=== PATIENT | female | born 1950 | race Caucasian/White ===

== ENCOUNTER 2018-11-04 20:07 | Observation (INO) ==
--- NOTE | 2018-11-04 20:53 | Emergency Department Note ---
Disposition Clinical Impression: Acute renal failure (ARF), Dehydration, Pneumonia, Acute kidney injury Disposition: Admitted As Inpatient Condition: Fair Referrals: Larry Kirkland DO [Primary Care Provider] - Forms: ED Satisfaction Letter Time of Disposition: 22:30 General Adult HPI - General Chief complaint: ED Urogenital-Female Stated complaint: SOB/NO urination all day Time Seen by Provider: 11/04/18 20:09 Source: patient Mode of arrival: ambulatory Limitations: no limitations Nursing Notes Reviewed: Yes Vital Signs Reviewed: Yes - History of Present Illness HPI Narrative: Older than stated 68-year-old female presents to emergency room with generalized myalgias weakness no energy no chest pain chest pressure or shortness of rales cough feels like she is wheezing crackles but also tells me she has not urinated in his last evening she "loss vision he states that she's had tenderness today states her bowels are working. Patient states that she's had no vomiting no diarrhea. She states that she has some chronic kidney disease and sees Dr. Moran for his denies any blurred vision double vision loss vision she s tates that she's had some lightheadedness and dizziness and weakness denies any chest pain chest pressure palpitations denies any recent rashes or lesions denies anything makes it better and worse all systems have been reviewed and are otherwise negative Onset (ago): day(s) (1) Location: other (Generalized) Pain Scale: 0 Improves with: nothing Worsens with: nothing Associated symptoms: Reports: cough, loss of appetite, malaise, nausea/vomiting, shortness of breath, weakness. Denies: confusion, chest pain, diaphoresis, fever/chills, headaches, rash, seizure, syncope Treatments Prior to Arrival: none - Related Data Home Medications Medication Instructions Recorded Confirmed Aspirin 81 mg PO DAILY 07/16/17 11/04/18 Isosorbide MONOnitrate (24 HR) 60 mg PO DAILY 07/16/17 11/04/18 [Imdur] LORazepam [Ativan] 1 mg PO BID 07/16/17 11/04/18 NIFEdipine [Adalat cc] 30 mg PO QPM 07/16/17 11/04/18 NIFEdipine [Adalat cc] 60 mg PO QAM 07/16/17 11/04/18 Levothyroxine Sodium [Levo-T] 50 mcg PO DAILY 08/04/18 11/04/18 Carvedilol 6.25 mg PO BID 11/04/18 11/04/18 Cholecalciferol (Vitamin D3) 1,000 unit PO DAILY 11/04/18 11/04/18 [Vitamin D] Guaifenesin/Dm/Pseudoephedrine 1 each PO QID PRN 11/04/18 11/04/18 [Capmist Dm Tablet] Previous Rx's Medication Instructions Recorded Albuterol Neb [Proventil Neb] 2.5 mg IH [id number] PRN #1 bottle 08/09/18 Albuterol Sulfate [Albuterol 2 puff IH Q4HR PRN #1 bottle 08/09/18 Inhaler] Allergies Allergy/AdvReac Type Severity Reaction Status Date / Time Amoxicillin Allergy Difficulty Verified 08/04/18 02:22 Swallowing azithromycin Allergy See Verified 11/04/18 20:27 Comments doxycycline Allergy Anaphylaxis Verified 08/04/18 02:22 Hydralazine Allergy See Verified 11/04/18 20:27 Comments prednisone Allergy Anaphylaxis Verified 08/04/18 02:22 Sulfa (Sulfonamide Allergy Difficulty Verified 08/04/18 02:22 Antibiotics) Swallowing All systems ED: reviewed and negative except as stated. Review of Systems: As Per HPI Constitutional: Reports: weakness. Denies: fever, chills Eyes: Denies: eye pain, eye discharge ENT ED: Denies: ear pain, throat pain Cardiovascular: Denies: chest pain, palpitations, dyspnea on exertion Respiratory: Reports: dyspnea. Denies: cough, wheezes Gastrointestinal: Reports: nausea. Denies: abdominal pain, vomiting Genitourinary: Reports: other (Retention versus oliguria). Denies: urgency, dysuria, frequency Musculoskeletal: Denies: back pain, neck pain Integumentary: Denies: rash, abrasion, lesions Neurological: Denies: headache, weakness Psychiatric: Denies: anxiety, depression Endocrine: Denies: fatigue Hematological/Lymphatic: Denies: easy bleeding Allergic/Immunologic: Denies: facial swelling Past Medical History - Past Medical History Attestation: Yes The following information was validated with the patient. 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 - Social History Smoking Status: Current every day smoker Smokeless Tobacco Status: No Alcohol use: Reports: none Drug use: Reports: none Physical Exam - General Limitations: no limitations General appearance: alert, in no apparent distress, anxious, other - Head Head exam: atraumatic, normocephalic, normal inspection - Eye Eye exam: Present: normal appearance, PERRL, EOMI - Expanded Eye Exam Slit lamp exam: (Ill but nontoxic) - ENT ENT exam: normal exam, normal oropharynx, mucous membranes dry, TM's normal bilaterally, normal external ear exam - Neck Neck exam: Present: normal inspection, full ROM, trachea midline - Chest Chest inspection: Present: normal inspection, symmetric chest wall rise - Respiratory Respiratory exam: Present: normal lung sounds bilaterally - Cardiovascular Cardiovascular exam: Present: regular rate, normal rhythm, normal heart sounds - Abdominal Exam Abdominal exam: Present: soft, Non-Tender, normal bowel sounds, other (I was unable to palpate the bladder on examination). Absent: mass, pulsatile mass - Extremities Exam Extremities exam: Present: normal inspection, full ROM, normal capillary refill. Absent: tenderness, pedal edema, joint swelling, calf tenderness - Expanded Lower Extremity Exam Neurovascular/Tendon exam: Present: normal capillary refill, normal fine/light touch Gait: observed and normal - Back Exam Back exam: Present: normal inspection, full ROM. Absent: tenderness, muscle spasm - Neurological Exam Neurological exam: Present: alert, oriented X3, CN II-XII intact, normal gait - Psychiatric Psychiatric exam: Present: normal affect, normal mood - Skin Skin exam: Present: warm, dry, intact, other (Slightly sallow ill appearing in color) Course Course Narrative: Patient was immediately seen and evaluated laboratory data his chest x-ray and bladder as a result patient was given an IV established and given 1 L normal saline patient was given a dose of Levaquin and also Rocephin with all results having been obtained I did try to reach Dr. Moran her career and technology education teacher and was unable to make contact with him I did call [facility] but they have no beds available at their facility did call hospitalist here for facility discussed care treatment management he's been advised that he she is on wait list for [facility] the patient patient was then transferred to [facility] as result she has significant renal impairment Vital Signs Temperature 97.3 F L 11/04/18 20:09 Pulse Rate 80 11/04/18 20:09 Respiratory Rate 18 11/04/18 20:09 Blood Pressure 182/76 11/04/18 20:09 O2 Sat by Pulse Oximetry 92 11/04/18 20:09 Temperature 97.3 F L 11/04/18 20:13 Pulse Rate 79 11/04/18 22:02 Respiratory Rate 17 11/04/18 22:02 Blood Pressure 185/78 11/04/18 22:02 O2 Sat by Pulse Oximetry 95 11/04/18 22:02 Oxygen Delivery Oxygen Delivery Nasal Cannula Medical Decision Making - MDM Narrative Medical decision making narrative: Dehydration acute on chronic kidney failure and congestive heart failure pneumonia bronchitis endorgan damage - Medical Records Medical records reviewed: Yes I reviewed the patient's medical records. - Lab Data Lab results reviewed: Yes I reviewed the patient's lab results. Result diagrams: 11/04/18 21:12 11/04/18 21:12 Lab Results 11/04/18 11/04/18 11/04/18 Range/Units 21:12 21:12 21:12 WBC 8.9 (4.3-11.1) K/mcL RBC 3.61 L (3.82-4.97) M/mcL Hgb 11.1 L (11.5-15.4) g/dL Hct 32.1 L (35.3-44.9) % MCV 88.9 (83.0-100.0) fL MCH 30.7 (28.0-33.3) pg MCHC 34.6 (31.6-35.5) g/dL RDW 13.2 (11.5-14.5) % Plt Count 176 (140-400) K/mcL MPV 11.0 (9.4-12.4) fL Immature Gran % 0.3 (0-4) % Seg Neutrophils % 80.2 % Lymphocytes % 12.2 % Monocytes % 6.5 % Eosinophils % 0.4 % Basophils % 0.4 % Neutrophils # 7.1 (1.6-8.9) K/mcL Lymphocytes # 1.1 (0.6-4.6) K/mcL Monocytes # 0.6 (0.0-1.3) K/mcL Eosinophils # 0.0 (0.0-0.6) K/mcL Basophils # 0.0 (0.0-0.2) K/mcL PT (9.4-12.1) Seconds INR APTT 51.1 H (26.0-36.0) Seconds Sodium (136-145) mEq/L Potassium (3.5-5.1) mEq/L Chloride (98-107) mEq/L Carbon Dioxide (23-29) mEq/L BUN (8-23) mg/dL Creatinine (0.60-1.20) mg/dL Est GFR ( Amer) (> 60) Est GFR (Non-Af Amer) (> 60) BUN/Creatinine Ratio (6-26) Glucose (70-105) mg/dL Calculated Osmolality (280-300) Lactic Acid (0.5-2.2) mmol/L Calcium (8.6-10.3) mg/dL Total Bilirubin (0.3-1.0) mg/dL AST (13-39) Units/L ALT (7-52) Units/L Alkaline Phosphatase (34-104) Units/L Troponin I (< 0.04) ng/mL B-Natriuretic Peptide 3972 H (Less than 100) pg/mL Serum Total Protein (6.4-8.9) g/dL Albumin (3.5-5.7) g/dL Globulin (2.4-3.5) g/dL Albumin/Globulin Ratio (1.1-2.2) 11/04/18 11/04/18 11/04/18 Range/Units 21:12 21:12 21:12 WBC (4.3-11.1) K/mcL RBC (3.82-4.97) M/mcL Hgb (11.5-15.4) g/dL Hct (35.3-44.9) % MCV (83.0-100.0) fL MCH (28.0-33.3) pg MCHC (31.6-35.5) g/dL RDW (11.5-14.5) % Plt Count (140-400) K/mcL MPV (9.4-12.4) fL Immature Gran % (0-4) % Seg Neutrophils % % Lymphocytes % % Monocytes % % Eosinophils % % Basophils % % Neutrophils # (1.6-8.9) K/mcL Lymphocytes # (0.6-4.6) K/mcL Monocytes # (0.0-1.3) K/mcL Eosinophils # (0.0-0.6) K/mcL Basophils # (0.0-0.2) K/mcL PT 12.9 H (9.4-12.1) Seconds INR 1.1 APTT (26.0-36.0) Seconds Sodium 127 L (136-145) mEq/L Potassium 4.2 (3.5-5.1) mEq/L Chloride 93 L (98-107) mEq/L Carbon Dioxide 16 L (23-29) mEq/L BUN 80 H (8-23) mg/dL Creatinine 6.35 H (0.60-1.20) mg/dL Est GFR ( Amer) 8 L (> 60) Est GFR (Non-Af Amer) 7 L (> 60) BUN/Creatinine Ratio 13 (6-26) Glucose 93 (70-105) mg/dL Calculated Osmolality 288 (280-300) Lactic Acid 0.7 (0.5-2.2) mmol/L Calcium 9.4 (8.6-10.3) mg/dL Total Bilirubin 0.5 (0.3-1.0) mg/dL AST 10 L (13-39) Units/L ALT 7 (7-52) Units/L Alkaline Phosphatase 59 (34-104) Units/L Troponin I 0.03 (< 0.04) ng/mL B-Natriuretic Peptide (Less than 100) pg/mL Serum Total Protein 6.9 (6.4-8.9) g/dL Albumin 4.0 (3.5-5.7) g/dL Globulin 2.9 (2.4-3.5) g/dL Albumin/Globulin Ratio 1.4 (1.1-2.2) - Radiology Data Radiology results reviewed: Yes I reviewed the patient's radiology results. ITS Impressions Chest X-Ray 11/04/18 20:50 IMPRESSION: Findings most compatible with pulmonary edema. Correlate with any clinical evidence of superimposed pneumonia. D/ / Riccardo Ansari MD / Riccardo Ansari MD Interpreting Provider: Riccardo Ansari MD - EKG Data EKG #1 EKG attestation: Yes I reviewed and interpreted this EKG. EKG results narrative: Sinus rhythm rate 81 UT 175 QRS 106 QT 420 access -34 but there is a wandering baseline noted borderline prolonged QT interval Critical Care Time Critical Care Time: Yes Total Critical Care Time: 35 Attestation: Probability clinically significant life-threatening deterioration patient condition exclusive reportable procedures time was spent trying to contact Dr. Moran her career and technology education teacher contacted [facility] where there are no beds available and then talking with Dr. Kim discussing the care management is been also advised that that they are bed at [facility] when one becomes available if they need to transfer her to nephrology services
[2018-11-04 21:27] LABS: Basophils % 0.4 %; Eosinophils % 0.4 %; Hematocrit 32.1 % (35.3-44.9); Hemoglobin 11.1 g/dL (11.5-15.4); Immature Granulocytes % 0.3 % (0-4); Lymphocytes # 1.1 K/mcL (0.6-4.6); Lymphocytes % 12.2 %; Mean Corpuscular HGB Conc 34.6 g/dL (31.6-35.5); Mean Corpuscular Hemoglobin 30.7 pg (28.0-33.3); Mean Corpuscular Volume 88.9 fL (83.0-100.0); Monocytes # 0.6 K/mcL (0.0-1.3); Monocytes % 6.5 %; Neutrophils # 7.1 K/mcL (1.6-8.9); Platelet Count 176 K/mcL (140-400); Red Blood Count 3.61 M/mcL (3.82-4.97); Red Cell Distribution Width 13.2 % (11.5-14.5); Segmented Neutrophils % 80.2 %
[2018-11-04 21:40] LABS: INR 1.1; Prothrombin Time 12.9 Seconds (9.4-12.1)
[2018-11-04 21:48] LABS: Albumin/Globulin Ratio 1.4 (1.1-2.2); Bilirubin,Total 0.5 mg/dL (0.3-1.0); Calcium 9.4 mg/dL (8.6-10.3); Globulin 2.9 g/dL (2.4-3.5); Potassium 4.2 mEq/L (3.5-5.1); Total Protein 6.9 g/dL (6.4-8.9)
[2018-11-04 21:56] LABS: Troponin I 0.03 ng/mL (< 0.04)
[2018-11-04] MEDS ORDERED: 0.9 % Sodium Chloride 1,000 ML IVC ONE (22:39)
[2018-11-04] MEDS ORDERED: Levofloxacin 500 MG/100 ML 500 MG/100 ML BAG IVPB ONE (22:39)
[2018-11-04] MEDS ORDERED: Nicotine 14 MG PATCH.TD24 TD SCH ×2 (23:00→23:15)
[2018-11-05] MEDS ORDERED: Naloxone 0.4 MG/ML INJ IVP PRN (00:02)
[2018-11-05] MEDS ORDERED: Levofloxacin 500 MG/100 ML 500 MG/100 ML BAG IVPB ONE (00:02)
[2018-11-05] MEDS ORDERED: Albuterol 2.5 MG/3 ML NEBULIZER IH PRN (00:02)
[2018-11-05] MEDS ORDERED: 0.9 % Sodium Chloride 1,000 ML IVC SCH (00:02)
[2018-11-05] MEDS ORDERED: Nicotine 14 MG PATCH.TD24 TD SCH (00:45)
[2018-11-05] MEDS: *HR* LORazepam 1 MG TABLET PO SCH ×3 (00:55→21:04)
[2018-11-05] MEDS ORDERED: Levothyroxine 25 MCG TABLET PO SCH (06:30)
[2018-11-05] MEDS: 0.9 % Sodium Chloride 1,000 ML IVC SCH ×2 (06:47→20:02)
[2018-11-05 06:52] LABS: Basophils % 0.4 %; Hematocrit 33.2 % (35.3-44.9); Hemoglobin 11.5 g/dL (11.5-15.4); Immature Granulocytes % 0.3 % (0-4); Lymphocytes # 0.7 K/mcL (0.6-4.6); Lymphocytes % 6.3 %; Mean Corpuscular HGB Conc 34.6 g/dL (31.6-35.5); Mean Corpuscular Hemoglobin 31.2 pg (28.0-33.3); Mean Platelet Volume 11.4 fL (9.4-12.4); Monocytes # 0.5 K/mcL (0.0-1.3); Monocytes % 4.3 %; Neutrophils # 9.8 K/mcL (1.6-8.9); Platelet Count 172 K/mcL (140-400); Red Blood Count 3.69 M/mcL (3.82-4.97); Red Cell Distribution Width 13.2 % (11.5-14.5); Segmented Neutrophils % 88.7 %
[2018-11-05 07:27] LABS: Calcium 9.1 mg/dL (8.6-10.3); INR 1.2; Magnesium 2.3 mg/dL (1.6-2.6); Phosphorous 7.9 mg/dL (2.7-4.5); Potassium 4.7 mEq/L (3.5-5.1); Prothrombin Time 13.3 Seconds (9.4-12.1)
[2018-11-05 07:29] LABS: Activated Partial Thrombo Time 50.3 Seconds (26.0-36.0)
[2018-11-05] MEDS ORDERED: Isosorbide MONOnitrate (24 HR) 60 MG TAB.ER.24H PO SCH (09:00)
[2018-11-05] MEDS ORDERED: Cholecalciferol (D-3) 1,000 UNIT TABLET PO SCH (09:00)
[2018-11-05] MEDS ORDERED: NIFEdipine XL (24 HR) 30 MG TAB.ER.24 PO SCH ×2 (09:00→18:00)
[2018-11-05] MEDS ORDERED: Aspirin 81 MG TAB.CHEW PO SCH (09:00)
[2018-11-05] MEDS ORDERED: *HR* LORazepam 2 MG/ML VIAL IVP ONE (12:38)
--- NOTE | 2018-11-05 12:46 | Internal Med History&Physical ---
Date of Encounter: 11/05/18 Time of Encounter: 12:10 Assessment and Plan (1) Acute kidney injury Current visit: Yes Status: Acute Significant decrease in GFR since August 2018. Abdominal/pelvic CT will be done to further evaluate. (2) Chronic kidney disease, stage IV (severe) Current visit: No Status: Chronic As above (3) Hypertension Current visit: No Status: Chronic Poorly controlled at present. Increase Coreg and continue Procardia. Qualifiers: Hypertension type: essential hypertension Qualified Code(s): I10 - Essential (primary) hypertension (4) Anxiety Current visit: No Status: Acute Continue Ativan. (5) Hypothyroidism Current visit: Yes Status: Chronic TSH was elevated at 10.844 on 08/04/2018. Recheck in a.m. Qualifiers: Hypothyroidism type: unspecified Qualified Code(s): E03.9 - Hypothyroidism, unspecified (6) Heart failure Current visit: Yes Status: Chronic Continue Imdur. Coreg dose will be increased. Qualifiers: Heart failure type: combined systolic and diastolic Heart failure chronicity: acute on chronic Qualified Code(s): I50.43 - Acute on chronic combined systolic (congestive) and diastolic (congestive) heart failure Internal Medicine - H&P: HPI Chief complaint: Decreased urine output, acute on chronic renal failure Admitted From: Emergency Dept Plans for Post Hospital Care: Home History of present illness: Ms. Corbin is a 68 year old female who came to emergency room stating she had abrupt decrease in urine output onset the morning of November 03. She had urinary tenesmus after very minimal urine output. She denies vomiting diarrhea fevers chills or significant abdominal or flank pain. She came to emergency room the evening of November 04 after symptoms did not improve. She was found to have acute on chronic renal failure and was admitted to [facility] floor for ongoing care needs. She denies previous similar episodes of abrupt decrease in urinary output. She denies visible hematuria. She has had chronic kidney disease stage IV for several years and follows with a [facility] nursing home. Her last nephrology office visit was approximately 2 months ago. Creatinine level was 2.07 on 08/09/2018 which was similar to previous 4 years. She denies other known kidney or bladder disorders. Past Med Surg Social Fam HX - Past Medical History Medical history: CHF, COPD, hypertension, renal disease, thyroid disease, other Additional medical history: fistula left arm, osteoarthritis Psychiatric history: anxiety, depression - Past Surgical History Surgical History: other (Left arm AV shunt) Additional surgical history: left upper extremity AV fistula - Social History Smoking Status: Current every day smoker Packs per day: 1 Smokeless Tobacco Status: No Alcohol use: none Drug use: none Internal Medicine - H&P: Meds Aspirin 81 mg PO DAILY 07/16/17 [History] Isosorbide MONOnitrate (24 HR) [Imdur] 60 mg PO DAILY 07/16/17 [History] LORazepam [Ativan] 1 mg PO BID 07/16/17 [History] NIFEdipine [Adalat cc] 30 mg PO QPM 07/16/17 [History] NIFEdipine [Adalat cc] 60 mg PO QAM 07/16/17 [History] Levothyroxine Sodium [Levo-T] 50 mcg PO DAILY 08/04/18 [History] Albuterol Neb [Proventil Neb] 2.5 mg IH [id number] PRN #1 bottle 08/09/18 [Rx] Albuterol Sulfate [Albuterol Inhaler] 2 puff IH Q4HR PRN #1 bottle 08/09/18 [Rx] Carvedilol 6.25 mg PO BID 11/04/18 [History] Cholecalciferol (Vitamin D3) [Vitamin D] 1,000 unit PO DAILY 11/04/18 [History] Guaifenesin/Dm/Pseudoephedrine [Capmist Dm Tablet] 1 each PO QID PRN 11/04/18 [History] Allergy/AdvReac Type Severity Reaction Status Date / Time Amoxicillin Allergy Difficulty Verified 08/04/18 02:22 Swallowing azithromycin Allergy See Verified 11/04/18 20:27 Comments doxycycline Allergy Anaphylaxis Verified 08/04/18 02:22 Hydralazine Allergy See Verified 11/04/18 20:27 Comments prednisone Allergy Anaphylaxis Verified 08/04/18 02:22 Sulfa (Sulfonamide Allergy Difficulty Verified 08/04/18 02:22 Antibiotics) Swallowing All Systems PM: A 10-system review of systems was performed and is negative for pertinent findings except as documented above in the HPI. Review of systems: Gen.: Her weight has decreased from 54.85 kg 07/01/2014 to 50.405 kg on admission. Cardiovascular: She has hypertension. Echocardiogram 07/23/2018 showed LVEF of 45%. The interventricular septum and posterior wall thickness measurements were 1.56 and 1.12 cm respectively. There was moderate LV diastolic dysfunction reported although E/A ratio is not recorded. There was [id number] mitral regurgitation. There is reported no pulmonary hypertension present although estimated RVSP was not recorded. She thinks she had a stress test March 2014 without further intervention recommended. She has not had DVT or pulmonary embolus and does not get angina on exertion. Respiratory: She has smoked since age 12 never exceeding three-quarter pack per day. She is not had PFTs but states she was told at one time she had COPD. She does not use home oxygen. She has not been tested for sleep apnea. GI: She denies disorders of her liver gallbladder or exocrine pancreas : As per history of present illness Neurologic: She denies large distribution strokes or seizures. Endocrine: She denies diabetes. She has hyperlipidemia and hypothyroidism. Hematology/oncology: She denies blood disorders cancers or anemia Psychiatric: She has anxiety and has been seen at mental health clinic. She denies other mental health diagnoses. Musk skeletal: She denies arthritis gout or other bone joint or muscle disorders. - Constitutional Vitals: Temp Pulse Resp BP Pulse Ox 98.0 F 86 16 191/81 91 11/05/18 10:56 11/05/18 10:56 11/05/18 10:56 11/05/18 10:56 11/05/18 10:56 Exam: Gen.: She is a well-developed well-nourished female lying in bed wearing BiPAP mask who appears slightly dyspneic. HEENT: Head is atraumatic and normocephalic. Eyes: EOMI. There is no scleral icterus. Mouth: Mucosa is moist. Neck: Supple and nontender. There is no thyromegaly or adenopathy noted. Heart: Regular without murmurs gallops or ectopics Lungs: She has diminished breath sounds diffusely. There is significant diminishment in the right posterior basilar area. Abdomen: Soft and nontender. No masses or guarding are noted. Extremities: There is no cyanosis edema or clubbing noted. Dorsalis pedis and posttibial pulses are trace to 1+ palpable bilaterally. She has AV fistula in her left upper arm. Neurologic: Mental status: She is talkative and a good historian. Cranial nerves: Smile is symmetric. Forehead wrinkles bilaterally. Tongue protrudes midline. EOMI. Motor: There is no pronator drift. Cerebellar: Finger to nose is intact bilaterally. Skin: Warm and dry Internal Med - H&P Results - Labs CBC & Chem 7: 11/05/18 06:15 11/05/18 06:15 Labs: Short CBC 11/04/18 11/05/18 Range/Units 21:12 06:15 WBC 8.9 11.0 (4.3-11.1) K/mcL Hgb 11.1 L 11.5 (11.5-15.4) g/dL Hct 32.1 L 33.2 L (35.3-44.9) % Plt Count 176 172 (140-400) K/mcL Neutrophils # 7.1 9.8 H (1.6-8.9) K/mcL BMP 11/04/18 11/05/18 21:12 06:15 Sodium 127 L 127 L Potassium 4.2 4.7 Chloride 93 L 95 L Carbon Dioxide 16 L 12 L BUN 80 H 83 H Creatinine 6.35 H 6.54 H Glucose 93 90 Calcium 9.4 9.1 Cardiac Enzymes 11/04/18 Range/Units 21:12 Troponin I 0.03 (< 0.04) ng/mL Liver Function 11/04/18 Range/Units 21:12 Total Bilirubin 0.5 (0.3-1.0) mg/dL AST 10 L (13-39) Units/L ALT 7 (7-52) Units/L Alkaline Phosphatase 59 (34-104) Units/L Albumin 4.0 (3.5-5.7) g/dL - Impressions ITS Impressions Chest X-Ray 11/04/18 20:50 IMPRESSION: Findings most compatible with pulmonary edema. Correlate with any clinical evidence of superimposed pneumonia. D/ / Riccardo Ansari MD / Riccardo Ansari MD Interpreting Provider: Riccardo Ansari MD
[2018-11-05] MEDS ORDERED: *HR* Labetalol 100 MG/20 ML MDV IVP ONE (17:57)
--- NOTE | 2018-11-05 17:59 | Discharge Summary ---
Orders not resulted at time of discharge: Pending orders 11/04/18 20:51 Urinalysis Reflex Cult & Micro [URIN] Stat 11/04/18 21:19 Culture,Blood [BC] Stat Date of Encounter: 11/05/18 Time of Encounter: 17:50 - Discharge Diagnosis (1) Acute kidney injury Priority: Primary Status: Acute (2) Chronic kidney disease, stage IV (severe) Priority: Secondary Status: Chronic (3) Hypertension Priority: Secondary Status: Chronic Qualifiers: Hypertension type: essential hypertension Qualified Code(s): I10 - Essential (primary) hypertension (4) Anxiety Priority: Secondary Status: Acute (5) Hypothyroidism Priority: Secondary Status: Chronic Qualifiers: Hypothyroidism type: unspecified Qualified Code(s): E03.9 - Hypothyroidism, unspecified (6) Heart failure Priority: Secondary Status: Chronic Qualifiers: Heart failure type: combined systolic and diastolic Heart failure chronicity: acute on chronic Qualified Code(s): I50.43 - Acute on chronic combined systolic (congestive) and diastolic (congestive) heart failure Hospital course: Ms. Corbin is a 68 year old female who came to emergency room stating she had abrupt decrease in urine output onset the morning of November 03. She had urinary tenesmus after very minimal urine output. She denies vomiting diarrhea fevers chills or significant abdominal or flank pain. She came to emergency room the evening of November 04 after symptoms did not improve. She was found to have acute on chronic renal failure and was admitted to [facility] floor for ongoing care needs. Initial orders were written by emergency room physician. I saw her on November 05 and performed the history and physical. A Castro catheter was inserted but there was very little urine output over her hospital stay. Creatinine remained elevated at 6.54 with estimated GFR 6 on follow-up labs. A CT of the chest, abdomen and pelvis was done to further evaluate. No aortic dissection or other worrisome pathology was seen. There was mild basilar lower consolidation with air bronchograms left greater than right. She received a dose of IV Levaquin in emergency room. I discussed the CT findings with patient and family. I told them I felt she needed dialysis and further workup done for the acute on chronic renal failure. She agreed to be transferred to [facility]. Coreg dose was increased. IV labetalol was given prior to transfer. TSH was elevated at 10.844 on 08/04/2018. Follow-up labs can be done during hospitalization or as an outpatient. - Time Spent with Patient Total time spent providing and/or coordinating discharge services: - Discharge Medications Home Medications: Aspirin 81 mg PO DAILY 07/16/17 [History] Isosorbide MONOnitrate (24 HR) [Imdur] 60 mg PO DAILY 07/16/17 [History] LORazepam [Ativan] 1 mg PO BID 07/16/17 [History] NIFEdipine [Adalat cc] 30 mg PO QPM 07/16/17 [History] NIFEdipine [Adalat cc] 60 mg PO QAM 07/16/17 [History] Levothyroxine Sodium [Levo-T] 50 mcg PO DAILY 08/04/18 [History] Albuterol Neb [Proventil Neb] 2.5 mg IH [id number] PRN #1 bottle 08/09/18 [Rx] Albuterol Sulfate [Albuterol Inhaler] 2 puff IH Q4HR PRN #1 bottle 08/09/18 [Rx] Carvedilol 6.25 mg PO BID 11/04/18 [History] Cholecalciferol (Vitamin D3) [Vitamin D] 1,000 unit PO DAILY 11/04/18 [History] Guaifenesin/Dm/Pseudoephedrine [Capmist Dm Tablet] 1 each PO QID PRN 11/04/18 [History] Allergies/Adverse Reactions: Allergy/AdvReac Type Severity Reaction Status Date / Time Amoxicillin Allergy Difficulty Verified 08/04/18 02:22 Swallowing azithromycin Allergy See Verified 11/04/18 20:27 Comments doxycycline Allergy Anaphylaxis Verified 08/04/18 02:22 Hydralazine Allergy See Verified 11/04/18 20:27 Comments prednisone Allergy Anaphylaxis Verified 08/04/18 02:22 Sulfa (Sulfonamide Allergy Difficulty Verified 08/04/18 02:22 Antibiotics) Swallowing Date of admission: 11/04/18 22:55 Primary care physician: Larry Kirkland DO Consults: 11/05/18 00:02 Consult to Dialysis [CONS] ONCE 11/06/18 00:02 Consult to Dialysis [CONS] ONCE - Constitutional Vitals: Temp Pulse Resp BP Pulse Ox 98.0 F 88 16 171/72 93 11/05/18 15:26 11/05/18 15:26 11/05/18 15:26 11/05/18 15:26 11/05/18 15:26 - Patient Status Disposition: Transfer Other Condition: Fair - Discharge Instructions
[2018-11-05 18:58] VITALS: BP 157/69
== END 2018-11-05 21:05 | disposition other institution (70) ==
LOC: EMEROOPIK 20:07 → INPPIK 20:07
PROVIDERS: ADMIT Internal Medicine; ATTEND Internal Medicine